=== PATIENT | male | born 1955 | race African-American/Black ===

== ENCOUNTER 2019-01-15 11:39 | Emergency (ER) | payer MEDICARE, MEDICAID ==
[~2019-01-15] VITALS: Ht 170.2 cm; Wt 100.0 kg
[2019-01-15] MEDS ORDERED: SODIUM CHLORIDE 0.9% 1,000 ML IV ONE (12:05)
[2019-01-15] MEDS ORDERED: KETOROLAC 30MG/ML VIAL IV STA (12:05)
[2019-01-15 12:25] LABS: HEMOGLOBIN. 16.6 g/dL (14.0-18.0); LYMPHOCYTES % 27.3 % (20.0-50.0); MEAN CORPUSCULAR HEMOGLOBIN 29.3 pg (28.0-32.0); MEAN CORPUSCULAR VOLUME 86.4 fL (80.0-94.0); NEUTROPHILS % 61.7 % (40.0-76.0); RED BLOOD CELL COUNT 5.67 mill/uL (4.7-6.1)
[2019-01-15 12:32] LABS: CHLORIDE 100 mEq/L (98-107)
[2019-01-15 13:02] LABS: CLARITY URINE CLEAR (CLEAR); COLOR URINE YELLOW (YELLOW); KETONES URINE 1+ (NEGATIVE); LEUKOCYTE ESTERASE URINE NEGATIVE (NEGATIVE); NITRITE URINE NEGATIVE (NEGATIVE); OCCULT BLOOD URINE TRACE (NEGATIVE); PH URINE 6.5 (4.5-8.0); PROTEIN URINE NEGATIVE (NEGATIVE); SPECIFIC GRAVITY URINE 1.014 (1.005-1.030); UROBILINOGEN URINE 0.2 E.U./dL (0.2-1.0)
[2019-01-15 13:06] LABS: MEAN PLATELET VOLUME 9.7 fl (7.4-10.4); PLATELET 216 x1000/uL (130-400)
[2019-01-15 15:15] VITALS: BP 140/92
== END 2019-01-15 15:30 | disposition home or self-care (01) ==
LOC: ER 11:39
DX: R10.31 Right lower quadrant pain (principal); I10 Essential (primary) hypertension; Z87.828 Personal history of other (healed) physical injury and trauma; Z90.5 Acquired absence of kidney
CPT/HCPCS: 36415; 74176; 80053; 81003; 83690; 85025; 93005; 96374; 99284; J1885; J7030